=== PATIENT | female | born 1985 | race Caucasian/White ===

== ENCOUNTER 2017-04-02 16:33 | Emergency (ER) | payer OTHER, SELFPAY ==
[2017-04-02] MEDS ORDERED: Sodium Chloride 0.9% 1000 ML 1,000 ML IV STA (17:23)
[2017-04-02] MEDS ORDERED: TYLENOL 325 MG PO STA (17:23)
[2017-04-02] MEDS ORDERED: MAXIPIME 1 GM** 1 G in Sodium Chloride 0.9% 100 ML IVPB 100 ML IV STA (17:23)
[2017-04-02] MEDS ORDERED: Lactated Ringers 1,000 ML IV SCH (17:30)
--- NOTE | 2017-04-02 17:42 | ERPHSYRPT ---
- History of Present Illness Time Seen by Provider: 04/02/17 17:20 Source: patient Exam Limitations: clinical condition Patient Subjective Stated Complaint: Pt states "I think I have the flu. I have body aches, coughing, chills." Triage Nursing Assessment: Pt alert and oriented X 3, skin pwd. Pt ambulates without difficutly, able to speak in clear full sentences. Physician History: PATIENT COMPLAINS OF FLU LIKE SYMPTOMS, FEVER, CHILLS, GENERALIZED ACHES, AND PRODUCTIVE COUGH SINCE LASTS NIGHT. DENIES DIFFICULTY BREATHING, NAUSEA, EMESIS OR DIARRHEA. Timing/Duration: yesterday Cough Quality/Degree: productive cough Possible Cause: occasional episodes Modifying Factors: Improves With: coughing Associated Symptoms: fever, chills, sore throat Allergies/Adverse Reactions: No Known Drug Allergies Allergy (Unverified 09/02/14 18:59) Home Medications: Buspirone HCl [Buspirone HCl] 10 mg PO DAILY 04/02/17 [History] Fluoxetine HCl [Fluoxetine HCl] 20 mg PO DAILY 04/02/17 [History] Trazodone HCl [Desyrel] 50 mg PO DAILY 04/02/17 [History] Hx Tetanus, Diphtheria Vaccination/Date Given: No Hx Influenza Vaccination/Date Given: Yes Hx Pneumococcal Vaccination/Date Given: No Immunizations Up to Date: Yes - Review of Systems Constitutional: Fever, Chills Eyes: No Symptoms Ears, Nose, & Throat: Throat Pain Respiratory: Cough Cardiac: No Chest Pain, No Edema, No Syncope Abdominal/Gastrointestinal: No Abdominal Pain, No Nausea, No Vomiting, No Diarrhea Genitourinary Symptoms: No Dysuria Musculoskeletal: Myalgias, No Back Pain, No Neck Pain Skin: No Symptoms Neurological: No Symptoms - Past Medical History Pertinent Past Medical History: Yes Neurological History: No Pertinent History ENT History: Other Cardiac History: No Pertinent History Respiratory History: No Pertinent History Endocrine Medical History: No Pertinent History Musculoskeletal History: No Pertinent History GI Medical History: Gallbladder Disease, Hepatitis History: No Pertinent History Psycho-Social History: No Pertinent History Female Reproductive Disorders: No Pertinent History - Past Surgical History Past Surgical History: Yes Neuro Surgical History: No Pertinent History Cardiac: No Pertinent History Respiratory: No Pertinent History Gastrointestinal: Cholecystectomy Genitourinary: No Pertinent History Musculoskeletal: No Pertinent History Female Surgical History: No Pertinent History Other Surgical History: 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 - Social History Smoking Status: Current every day smoker How long have you smoked: 15 years Exposure to second hand smoke: Yes Drug Use: none Patient Lives Alone: No - Female History Hx Last Menstrual Period: 03/16/2017 Hx Now: No - Nursing Vital Signs Nursing Vital Signs: Initial Vital Signs Temperature 102.5 F 04/02/17 16:41 Pulse Rate 104 H 04/02/17 16:41 Respiratory Rate 20 04/02/17 16:41 Blood Pressure 147/88 04/02/17 16:41 O2 Sat by Pulse Oximetry 98 04/02/17 16:41 Pain Scale Pain Intensity 4 - Physical Exam General Appearance: no apparent distress, alert Eye Exam: PERRL/EOMI, eyes nml inspection Ears, Nose, Throat Exam: normal ENT inspection, TMs normal, pharynx normal, moist mucous membranes Neck Exam: normal inspection, non-tender, supple, full range of motion Respiratory Exam: diminished breath sounds, No respiratory distress Cardiovascular Exam: regular rate/rhythm (NO WHEEZES OR RHONCHI), normal heart sounds Gastrointestinal/Abdomen Exam: soft, No tenderness Back Exam: normal inspection, No CVA tenderness, No vertebral tenderness Extremity Exam: normal inspection, normal range of motion Neurologic Exam: alert, oriented x 3, cooperative, normal mood/affect, sensation nml, No motor deficits Skin Exam: normal color, warm, dry, No rash Lymphatic Exam: No adenopathy SpO2: 98 Oxygen Delivery: Room Air - Radiology Exams Chest X-ray Interpretation: Interpreted by me (RIGHT INFRAHILAR INFILTRATE) Ordered Tests: Active Orders 24 hr Category Date Time Status Air Traffic Control Supervisor STAT Care 04/02/17 17:24 Active EKG-ER Only STAT Care 04/02/17 17:23 Active IV Insertion STAT Care 04/02/17 17:23 Active Pulse Oximetry (ED) STAT Care 04/02/17 17:23 Active CHEST 1 VIEW (PORTABLE) Stat Exams 04/02/17 18:27 Taken BLOOD CULTURE Stat Lab 04/02/17 17:58 Received CBC W DIFF Stat Lab 04/02/17 17:58 Completed CMP Stat Lab 04/02/17 17:58 Completed CULTURE, THROAT Stat Lab 04/02/17 17:40 Received CULTURE,SPUTUM Stat Lab 04/02/17 17:24 Uncollected CULTURE,URINE Stat Lab 04/02/17 18:00 Received HCG,QUALITATIVE URINE Stat Lab 04/02/17 18:00 Completed Lactic Acid Stat Lab 04/02/17 18:05 Completed Manual Differential NC Stat Lab 04/02/17 17:58 Completed STREP SCREEN-BETA A Stat Lab 04/02/17 17:40 Completed UA W/ MICROSCOPIC Stat Lab 04/02/17 18:00 Completed Respiratory Nebulizer STAT RT 04/02/17 17:59 Completed Medication Summary Generic Name Dose Route Start Last Admin Trade Name Freq PRN Reason Stop Dose Admin Lactated Ringer's 1,000 mls @ 999 mls/hr 04/02/17 17:30 04/02/17 17:55 Lactated Ringers IV 04/02/17 20:30 999 mls/hr .Q1H1M CAREY Administration Discontinued Medications Generic Name Dose Route Start Last Admin Trade Name Freq PRN Reason Stop Dose Admin Acetaminophen 650 mg 04/02/17 17:23 04/02/17 17:55 Tylenol 325 Mg PO 04/02/17 17:24 650 mg STAT STA Administration Acetaminophen Confirm 04/02/17 17:51 Tylenol 325 Mg Administered 04/02/17 17:52 Dose 650 mg .ROUTE .STK-MED ONE Albuterol/Ipratropium Confirm 04/02/17 17:54 Duoneb 0.5-3 Mg/3 Ml Neb Administered 04/02/17 17:55 Dose 3 ml IH .STK-MED ONE Albuterol/Ipratropium 3 ml 04/02/17 17:59 04/02/17 17:58 Duoneb 0.5-3 Mg/3 Ml Neb IH 04/02/17 18:00 3 ml STAT ONE Administration Albuterol/Ipratropium Confirm 04/02/17 18:06 Duoneb 0.5-3 Mg/3 Ml Neb Administered 04/02/17 18:07 Dose 3 ml IH .STK-MED ONE Cefepime HCl 1 g/ Sodium 100 mls @ 200 mls/hr 04/02/17 17:23 04/02/17 18:28 Chloride IV 04/02/17 17:52 200 mls/hr STAT STA Administration Sodium Chloride 1,000 mls @ 999 mls/hr 04/02/17 17:23 04/02/17 17:55 Sodium Chloride 0.9% 1000 Ml IV 04/02/17 18:23 999 mls/hr .Q1H1M STA Administration Sodium Chloride Confirm 04/02/17 17:51 Sodium Chloride 0.9% 1000 Ml Administered 04/02/17 17:52 Dose 1,000 mls @ ud .ROUTE .STK-MED ONE Ondansetron HCl 4 mg 04/02/17 20:20 04/02/17 20:29 Zofran 4 Mg/2 Ml Vial IV 04/02/17 20:21 4 mg STAT ONE Administration Ondansetron HCl Confirm 04/02/17 20:21 Zofran 4 Mg/2 Ml Vial Administered 04/02/17 20:22 Dose 4 mg .ROUTE .STK-Exepron ONE Oseltamivir Phosphate 75 mg 04/02/17 21:08 04/02/17 21:16 Tamiflu 75mg Capsule PO 04/02/17 21:09 75 mg STAT ONE Administration Oseltamivir Phosphate Confirm 04/02/17 21:13 Tamiflu 75mg Capsule Administered 04/02/17 21:14 Dose 75 mg PO .K-Exepron ONE Lab/Rad Data: Laboratory Result Diagrams 04/02/17 17:58 04/02/17 17:58 Laboratory Results 04/02/17 04/02/17 04/02/17 Range/Units 19:55 18:05 18:00 WBC (4.0-10.5) K/mm3 RBC (4.1-5.4) M/mm3 Hgb (12.0-16.0) gm/dl Hct (35-47) % MCV (78-100) fl MCH (26-32) pg MCHC (32-36) g/dl RDW (11.5-14.0) % Plt Count (150-450) K/mm3 MPV (6-9.5) fl Segmented Neutrophils (36.0-66.0) % Band Neutrophils (0.0-2.0) % Lymphocytes (Manual) (24-44) % Monocytes (Manual) (0.0-12.0) % Differential Comment Platelet Estimate (NORMAL) Sodium (136-145) mEq/L Potassium (3.5-5.1) mEq/L Chloride (98-107) mEq/L Carbon Dioxide (21-32) mEq/L Anion Gap (5-15) MEQ/L BUN (9-20) mg/dL Creatinine (0.55-1.30) mg/dl Estimated GFR ML/MIN Glucose (70-110) MG/DL Lactic Acid 0.7 (0.4-2.0) Calcium (8.5-10.1) mg/dL Total Bilirubin (0.2-1.0) mg/dL AST (15-37) U/L ALT (12-78) U/L Alkaline Phosphatase (46-116) U/L Serum Total Protein (6.4-8.2) gm/dL Albumin (3.4-5.0) g/dL Ur Collection Type Urine Color (YELLOW) Urine Appearance (CLEAR) Urine pH (5-6) Ur Specific [place] (1.005-1.025) Urine Protein (Negative) Urine Ketones (NEGATIVE) Urine Blood (0-5) Parker/ul Urine Nitrite (NEGATIVE) Urine Bilirubin (NEGATIVE) Urine Urobilinogen (0-1) mg/dL Ur Leukocyte Esterase (NEGATIVE) Urine Microscopic RBC (0-2) /HPF Urine Microscopic WBC (0-5) /HPF Ur Epithelial Cells (FEW) /HPF Urine Bacteria (NEGATIVE) /HPF Urine Glucose (NEGATIVE) mg/dL Urine HCG, Qual NEGATIVE (Negative) Influenza Type A Ag POSITIVE (NEGATIVE) Influenza Type B Ag NEGATIVE (NEGATIVE) RSV (PCR) NEGATIVE (Negative) Streptococcus Screen (Negative) Specimen Received 04/02/17 04/02/17 04/02/17 Range/Units 18:00 17:58 17:58 WBC 7.3 (4.0-10.5) K/mm3 RBC 4.16 (4.1-5.4) M/mm3 Hgb 12.1 (12.0-16.0) gm/dl Hct 36.9 (35-47) % MCV 88.7 (78-100) fl MCH 29.1 (26-32) pg MCHC 32.8 (32-36) g/dl RDW 14.5 H (11.5-14.0) % Plt Count 272 (150-450) K/mm3 MPV 10.6 H (6-9.5) fl Segmented Neutrophils 85 H (36.0-66.0) % Band Neutrophils 4 H (0.0-2.0) % Lymphocytes (Manual) 4 L (24-44) % Monocytes (Manual) 7 (0.0-12.0) % Differential Comment NORMAL Platelet Estimate NORMAL (NORMAL) Sodium 137 (136-145) mEq/L Potassium 3.6 (3.5-5.1) mEq/L Chloride 101 (98-107) mEq/L Carbon Dioxide 28.8 (21-32) mEq/L Anion Gap 10.8 (5-15) MEQ/L BUN 10 (9-20) mg/dL Creatinine 0.91 (0.55-1.30) mg/dl Estimated GFR > 60 ML/MIN Glucose 101 (70-110) MG/DL Lactic Acid (0.4-2.0) Calcium 8.9 (8.5-10.1) mg/dL Total Bilirubin < 0.10 L (0.2-1.0) mg/dL AST 18 (15-37) U/L ALT 22 (12-78) U/L Alkaline Phosphatase 63 (46-116) U/L Serum Total Protein 7.6 (6.4-8.2) gm/dL Albumin 3.8 (3.4-5.0) g/dL Ur Collection Type CLEAN CATCH Urine Color YELLOW (YELLOW) Urine Appearance HAZY (CLEAR) Urine pH 6.0 (5-6) Ur Specific [place] 1.020 (1.005-1.025) Urine Protein NEGATIVE (Negative) Urine Ketones NEGATIVE (NEGATIVE) Urine Blood 250 (0-5) Parker/ul Urine Nitrite NEGATIVE (NEGATIVE) Urine Bilirubin NEGATIVE (NEGATIVE) Urine Urobilinogen NORMAL (0-1) mg/dL Ur Leukocyte Esterase TRACE (NEGATIVE) Urine Microscopic RBC 5-10 (0-2) /HPF Urine Microscopic WBC 0-2 (0-5) /HPF Ur Epithelial Cells MANY (FEW) /HPF Urine Bacteria FEW (NEGATIVE) /HPF Urine Glucose NEGATIVE (NEGATIVE) mg/dL Urine HCG, Qual (Negative) Influenza Type A Ag (NEGATIVE) Influenza Type B Ag (NEGATIVE) RSV (PCR) (Negative) Streptococcus Screen (Negative) Specimen Received 04/02/2017 1800 04/02/17 Range/Units 17:40 WBC (4.0-10.5) K/mm3 RBC (4.1-5.4) M/mm3 Hgb (12.0-16.0) gm/dl Hct (35-47) % MCV (78-100) fl MCH (26-32) pg MCHC (32-36) g/dl RDW (11.5-14.0) % Plt Count (150-450) K/mm3 MPV (6-9.5) fl Segmented Neutrophils (36.0-66.0) % Band Neutrophils (0.0-2.0) % Lymphocytes (Manual) (24-44) % Monocytes (Manual) (0.0-12.0) % Differential Comment Platelet Estimate (NORMAL) Sodium (136-145) mEq/L Potassium (3.5-5.1) mEq/L Chloride (98-107) mEq/L Carbon Dioxide (21-32) mEq/L Anion Gap (5-15) MEQ/L BUN (9-20) mg/dL Creatinine (0.55-1.30) mg/dl Estimated GFR ML/MIN Glucose (70-110) MG/DL Lactic Acid (0.4-2.0) Calcium (8.5-10.1) mg/dL Total Bilirubin (0.2-1.0) mg/dL AST (15-37) U/L ALT (12-78) U/L Alkaline Phosphatase (46-116) U/L Serum Total Protein (6.4-8.2) gm/dL Albumin (3.4-5.0) g/dL Ur Collection Type Urine Color (YELLOW) Urine Appearance (CLEAR) Urine pH (5-6) Ur Specific [place] (1.005-1.025) Urine Protein (Negative) Urine Ketones (NEGATIVE) Urine Blood (0-5) Parker/ul Urine Nitrite (NEGATIVE) Urine Bilirubin (NEGATIVE) Urine Urobilinogen (0-1) mg/dL Ur Leukocyte Esterase (NEGATIVE) Urine Microscopic RBC (0-2) /HPF Urine Microscopic WBC (0-5) /HPF Ur Epithelial Cells (FEW) /HPF Urine Bacteria (NEGATIVE) /HPF Urine Glucose (NEGATIVE) mg/dL Urine HCG, Qual (Negative) Influenza Type A Ag (NEGATIVE) Influenza Type B Ag (NEGATIVE) RSV (PCR) (Negative) Streptococcus Screen NEGATIVE (Negative) Specimen Received - Progress Progress: improved Progress Note: 04/02/17 17:31 PATIENT PLACED ONTO SEPSIS PROTOCOL AT 1730 FLUID BOLUS 86KG/30ML, AFTER 2 SETS OF BLOOD CULTURES MAXIPINE 1GM IVPB, FOLLOWED BY DUO NEB AEROSOL TX 01/22/18 21:19, ADMINISTERED TAMIFLU 75 MG ORALLY Blood Culture(s) Obtained: Yes Antibiotics given: Yes Counseled pt/family regarding: diagnosis, need for follow-up, rad results, smoking cessation - Departure Time of Disposition: 21:30 Departure Disposition: Home Clinical Impression: INFLUENZA A, ACUTE BRONCHITIS Condition: Stable Critical Care Time: No Referrals: REBEKAH HUNT [Primary Care Provider] - Additional Instructions: TAKE COUGH ROBITUSSIN AC WITH CODEINE 5ML EVERY 4 HOURS NEEDED. ANTIBIOTIC OMNICEF 300MG TWICE DAILY FOR 10 DAYS. TAMIFLU 75MG TWICE FOR 5 DAYS. ALTERNATE TYLENOL EVERY OTHER 4 HOURS WITH MOTRIN NEEDED FOR FEVER OR CHILLS. Prescriptions: Guaifenesin/Codeine 5 ml [Robitussin AC Syrup Unit Dose Cup] 0 ml PO Q4H PRN PRN #120 udcup PRN Reason: Cough Cefdinir [Omnicef 300 mg] 300 mg PO BID #20 capsule Oseltamivir 75 mg [Tamiflu 75MG Capsule] 75 mg PO BID #10 cap
[2017-04-02] MEDS ORDERED: TYLENOL 325 MG ONE (17:51)
[2017-04-02] MEDS ORDERED: Sodium Chloride 0.9% 1000 ML 1,000 ML ONE (17:51)
[2017-04-02] MEDS ORDERED: Lactated Ringers 1,000 ML IV ONE (17:51)
[2017-04-02] MEDS ORDERED: DUONEB 0.5-3 MG/3 ml Neb IH ONE ×3 (17:54→18:06)
[2017-04-02 18:14] LABS: Granulocyte Absolute (ANC) 6.38 (1.4-6.9); Hematocrit 36.9 % (35-47); Hemoglobin 12.1 gm/dl (12.0-16.0); Mean Cell Volume 88.7 fl (78-100); Mean Corpuscular Hemoglobin 29.1 pg (26-32); Mean Corpuscular Hgb Concent. 32.8 g/dl (32-36); Mean Platelet Volume 10.6 fl (6-9.5); Platelet Count 272 K/mm3 (150-450); Red Blood Count 4.16 M/mm3 (4.1-5.4); Red Cell Distribution Width 14.5 % (11.5-14.0); White Blood Count 7.3 K/mm3 (4.0-10.5)
[2017-04-02 18:19] LABS: Appearance HAZY (CLEAR); Bacteria FEW /HPF (NEGATIVE); Bilirubin NEGATIVE (NEGATIVE); Blood 250 Ery/ul (0-5); Epithelial Cells MANY /HPF (FEW); Glucose NEGATIVE (NEGATIVE); Ketones NEGATIVE (NEGATIVE); Leukocyte Esterase TRACE (NEGATIVE); Nitrite NEGATIVE (NEGATIVE); Protein,Urine Dip NEGATIVE (Negative); Urobilinogen NORMAL mg/dL (0-1); WBC 0-2 /HPF (0-5)
[2017-04-02 18:24] LABS: ALBUMIN 3.8 g/dL (3.4-5.0); ALKALINE PHOSPHATASE 63 U/L (46-116); ANION GAP 10.8 MEQ/L (5-15); BLOOD UREA NITROGEN 10 mg/dL (9-20); CHLORIDE 101 mEq/L (98-107); Calcium 8.9 mg/dL (8.5-10.1); Carbon Dioxide 28.8 mEq/L (21-32); Creatinine 1 0.91 mg/dl (0.55-1.30); EST GLOMERULAR FILTRATION RATE > 60 ML/MIN; Glucose 101 MG/DL (70-110); Potassium 3.6 mEq/L (3.5-5.1); SGOT/AST 18 U/L (15-37); SGPT/ALT 22 U/L (12-78); SODIUM 137 mEq/L (136-145); Total Protein 7.6 gm/dL (6.4-8.2)
[2017-04-02 18:26] LABS: BILIRUBIN,TOTAL < 0.10 mg/dL (0.2-1.0)
[2017-04-02 18:56] LABS: BAND 4 % (0.0-2.0); Lymphocytes 4 % (24-44); Monocyte 7 % (0.0-12.0); Neutrophils 85 % (36.0-66.0); Total Cells Counted 100
[2017-04-02 18:57] LABS: Platelet Estimate NORMAL (NORMAL)
[2017-04-02] MEDS ORDERED: Zofran 4 MG/2 ML VIAL IV ONE (20:20)
[2017-04-02] MEDS ORDERED: Zofran 4 MG/2 ML VIAL ONE (20:21)
[2017-04-02 21:01] LABS: INFLUENZA A POSITIVE (NEGATIVE); INFLUENZA B NEGATIVE (NEGATIVE); RESPIRATORY SYNCTIAL VIRUS NEGATIVE (Negative)
[2017-04-02] MEDS ORDERED: Tamiflu 75MG Capsule PO ONE ×2 (21:08→21:13)
[2017-04-02 21:24] VITALS: O2SAT 98
[2017-04-02 21:50] VITALS: BP 127/69; PULSE 97
--- NOTE | 2017-04-03 08:39 | XRAY ---
Indication: Cough. Comparison: February 14, 2016. Portable chest demonstrates new subtle right base infiltrate/atelectasis. Remaining heart, lungs, and bony thorax normal.
== END 2017-04-02 21:48 | disposition home or self-care (01) ==
LOC: ED 16:33
DX: J09.X2 Influenza due to identified novel influenza A virus with other respiratory manifestations (principal); J20.9 Acute bronchitis, unspecified
CPT/HCPCS: 36000; 36415; 71045; 80053; 81000; 83605; 84703; 85025; 87040; 87070; 87086; 87430; 87631; 93005; 93041; 94640; 96374; 99284; J0692; J2405; A9270-GY

== ENCOUNTER 2017-10-02 18:39 | Emergency (ER) | payer OTHER ==
[2017-10-02 18:53] VITALS: PULSE 90; O2SAT 96
[2017-10-02] MEDS ORDERED: Phenergan 25 MG INJ IV ONE (19:47)
[2017-10-02] MEDS ORDERED: Sodium Chloride 0.9% 1000 ML 1,000 ML IV STA (19:47)
[2017-10-02] MEDS ORDERED: Phenergan 25 MG INJ ONE ×2 (19:57→20:10)
[2017-10-02] MEDS ORDERED: Sodium Chloride 0.9% 1000 ML 1,000 ML ONE ×2 (19:57→20:10)
[2017-10-02 20:37] LABS: ALBUMIN 4.3 g/dL (3.5-5.0); ALKALINE PHOSPHATASE 110 U/L (38-126); AMYLASE 45 U/L (30-110); ANION GAP 14.5 MEQ/L (5-15); BLOOD UREA NITROGEN 4 mg/dL (7-17); CHLORIDE 99 mmol/L (98-107); Calcium 8.9 mg/dL (8.4-10.2); Carbon Dioxide 27 mmol/L (22-30); Creatinine 1 0.78 mg/dL (0.52-1.04); Glucose 113 mg/dL (74-106); LIPASE 36 U/L (23-300); Potassium 3.1 mmol/L (3.5-5.1); SGOT/AST 112 U/L (14-36); SGPT/ALT 176 U/L (0-35); SODIUM 137 mmol/L (137-145); Total Protein 7.6 g/dL (6.3-8.2)
[2017-10-02 20:38] LABS: BASOPHIL % 0.1 % (0.0-0.4); Basophil (Absolute #) 0.01 (0-0.4); Eosinophil % 0.9 % (0.00-5.0); Eosinophil (Absolute #) 0.07 (0-0.5); Granulocyte Absolute (ANC) 5.92 (1.4-6.9); Granulocytes % 79.2 % (36.0-66.0); Hematocrit 38.6 % (35-47); Hemoglobin 12.8 gm/dl (12.0-16.0); Lymphocyte (Absolute #) 0.88 (1.0-4.6); Lymphocytes % 11.8 % (24.0-44.0); Mean Cell Volume 87.5 fl (78-100); Mean Corpuscular Hgb Concent. 33.2 g/dl (32-36); Mean Platelet Volume 9.6 fl (6-9.5); Platelet Count 283 K/mm3 (150-450); Red Blood Count 4.41 M/mm3 (4.1-5.4); Red Cell Distribution Width 14.4 % (11.5-14.0); White Blood Count 7.5 K/mm3 (4.0-10.5)
[2017-10-02 20:50] LABS: Appearance SLIGHTLY CLOUDY (CLEAR); Leukocyte Esterase 1+ (NEGATIVE); Nitrite NEGATIVE (NEGATIVE); Specific Gravity 1.015 (1.005-1.025)
[2017-10-02 20:51] LABS: Bilirubin NEGATIVE (NEGATIVE); Blood 250 Ery/ul (0-5); Glucose NEGATIVE (NEGATIVE); Ketones NEGATIVE (NEGATIVE); Protein,Urine Dip TRACE (Negative); Urobilinogen NORMAL mg/dL (0-1)
[2017-10-02 20:52] LABS: Bacteria MODERATE /HPF (NEGATIVE); Epithelial Cells MANY /HPF (FEW)
[2017-10-02 20:53] LABS: RBC 25-50 /HPF (0-2)
[2017-10-02] MEDS ORDERED: Cipro 500 MG PO ONE (21:30)
[2017-10-02] MEDS ORDERED: Flagyl 500 MG PO ONE (21:30)
--- NOTE | 2017-10-02 21:52 | ERPHSYRPT ---
- History of Present Illness Time Seen by Provider: 10/02/17 19:20 Historian: patient Exam Limitations: no limitations Patient Subjective Stated Complaint: Pt states "I have had diarrhea and abdominal cramping for the past three days. I have not been able to eat or drink for three days either." Triage Nursing Assessment: Pt alert and oriented X 3, skin pwd. PT ambulates with an upright steady gait, able to speak in clear full sentences, no apparent respiratory distress. Physician History: 32 Y/O WHITE FEMALE WITH H/O BTL PRESENTS WITH N/V/D INTERMITTENTLY FOR 3 TO 4 DAYS. NO CAMPING, NO TRAVEL OUTSIDE US, NO DRINKING OF WELL WATER. NO INDIVIDUALS WITH SIMILAR SX. PT HAS HAD A CHOLECYSTECTOMY IN THE PAST Timing/Duration: day(s) (3 TO 4 DAY) Activities at Onset: none Quality: cramping Abdominal Pain Onset Location: generalized abdomen Pain Radiation: no radiation Severity of Pain-Max: mild Severity of Pain-Current: mild Allergies/Adverse Reactions: kiwi Allergy (Severe, Verified 10/02/17 18:54) mouth tingling and swelling Home Medications: Fluoxetine HCl 20 mg PO DAILY 04/02/17 [History] Trazodone HCl [Desyrel] 50 mg PO DAILY 04/02/17 [History] Hx Tetanus, Diphtheria Vaccination/Date Given: Yes Hx Influenza Vaccination/Date Given: Yes Hx Pneumococcal Vaccination/Date Given: No Immunizations Up to Date: Yes - Review of Systems Constitutional: No Symptoms, Night Sweats, No Fever, No Chills, No Weight Loss Eyes: No Symptoms Ears, Nose, & Throat: No Symptoms Respiratory: No Symptoms, No Cough, No Dyspnea, No Stridor, No Wheezing Cardiac: No Symptoms, No Chest Pain Abdominal/Gastrointestinal: Abdominal Pain, Nausea, Vomiting, Diarrhea Genitourinary Symptoms: No Symptoms, No Dysuria, No Frequency, No Hematuria, No Vaginal Bleeding, No Vaginal Discharge Musculoskeletal: No Symptoms, No Arthralgias, No Back Pain Skin: No Symptoms Neurological: No Symptoms Psychological: No Symptoms Endocrine: No Symptoms Hematologic/Lymphatic: No Symptoms Immunological/Allergic: No Symptoms All Other Systems: Reviewed and Negative - Past Medical History Pertinent Past Medical History: Yes Neurological History: No Pertinent History ENT History: Other Cardiac History: No Pertinent History Respiratory History: No Pertinent History Endocrine Medical History: No Pertinent History Musculoskeletal History: No Pertinent History GI Medical History: Gallbladder Disease, Hepatitis History: No Pertinent History Psycho-Social History: No Pertinent History Female Reproductive Disorders: No Pertinent History - Past Surgical History Past Surgical History: Yes Neuro Surgical History: No Pertinent History Cardiac: No Pertinent History Respiratory: No Pertinent History Gastrointestinal: Cholecystectomy Genitourinary: No Pertinent History Musculoskeletal: No Pertinent History Female Surgical History: No Pertinent History Other Surgical History: 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 - Social History Smoking Status: Current every day smoker How long have you smoked: 15 years Exposure to second hand smoke: Yes Drug Use: none Patient Lives Alone: No - Female History Hx Last Menstrual Period: 08/27/2017 Hx Now: No - Nursing Vital Signs Nursing Vital Signs: Initial Vital Signs Temperature 99.8 F 10/02/17 18:48 Pulse Rate 90 10/02/17 18:48 Respiratory Rate 18 10/02/17 18:48 Blood Pressure 138/79 10/02/17 18:48 O2 Sat by Pulse Oximetry 96 10/02/17 18:48 Pain Scale Pain Intensity 5 - Physical Exam General Appearance: no apparent distress, alert, anxiety Eye Exam: PERRL/EOMI, eyes nml inspection Ears, Nose, Throat Exam: normal ENT inspection Neck Exam: normal inspection, non-tender, supple, full range of motion Respiratory Exam: normal breath sounds, lungs clear, airway intact, No chest tenderness, No respiratory distress Gastrointestinal/Abdomen Exam: soft, tenderness (MILD DIFFUSE), No guarding, No rebound Pelvic Exam: not done Rectal Exam: deferred Back Exam: normal inspection, normal range of motion Extremity Exam: normal inspection, normal range of motion, pelvis stable Neurologic Exam: alert, oriented x 3, cooperative, dairy technician II-XII nml as tested, normal mood/affect Skin Exam: normal color, warm, dry Lymphatic Exam: No adenopathy SpO2 Interpretation: normal SpO2: 96 Oxygen Delivery: Room Air - Course Nursing assessment & vital signs reviewed: Yes Ordered Tests: Active Orders 24 hr Category Date Time Status IV Insertion STAT Care 10/02/17 19:47 Active AMYLASE Stat Lab 10/02/17 20:10 Completed CBC W DIFF Stat Lab 10/02/17 20:10 Completed CMP Stat Lab 10/02/17 20:10 Completed CULTURE,URINE Stat Lab 10/02/17 19:50 Received HCG,QUALITATIVE URINE Stat Lab 10/02/17 19:50 Completed LIPASE Stat Lab 10/02/17 20:10 Completed UA W/ MICROSCOPIC Stat Lab 10/02/17 19:50 Completed Medication Summary Discontinued Medications Generic Name Dose Route Start Last Admin Trade Name Kit PRN Reason Stop Dose Admin Ciprofloxacin 500 mg 10/02/17 21:30 Cipro 500 Mg PO 10/02/17 21:31 STAT ONE Sodium Chloride 1,000 mls @ 999 mls/hr 10/02/17 19:47 10/02/17 20:12 Sodium Chloride 0.9% 1000 Ml IV 10/02/17 20:47 999 mls/hr .Q1H1M STA Administration Sodium Chloride Confirm 10/02/17 19:57 Sodium Chloride 0.9% 1000 Ml Administered 10/02/17 19:58 Dose 1,000 mls @ ud .ROUTE .STK-MED ONE Sodium Chloride Confirm 10/02/17 20:10 Sodium Chloride 0.9% 1000 Ml Administered 10/02/17 20:11 Dose 1,000 mls @ ud .ROUTE .STK-MED ONE Metronidazole 500 mg 10/02/17 21:30 Flagyl 500 Mg PO 10/02/17 21:31 STAT ONE Promethazine HCl 12.5 mg 10/02/17 19:47 10/02/17 20:12 Phenergan 25 Mg Inj IV 10/02/17 19:48 12.5 mg STAT ONE Administration Promethazine HCl Confirm 10/02/17 19:57 Phenergan 25 Mg Inj Administered 10/02/17 19:58 Dose 25 mg .ROUTE .STK-MED ONE Promethazine HCl Confirm 10/02/17 20:10 Phenergan 25 Mg Inj Administered 10/02/17 20:11 Dose 25 mg .ROUTE .STK-MED ONE Lab/Rad Data: Laboratory Result Diagrams 10/02/17 20:10 10/02/17 20:10 Laboratory Results 10/02/17 10/02/17 10/02/17 Range/Units 20:10 20:10 19:50 WBC 7.5 (4.0-10.5) K/mm3 RBC 4.41 (4.1-5.4) M/mm3 Hgb 12.8 (12.0-16.0) gm/dl Hct 38.6 (35-47) % MCV 87.5 (78-100) fl MCH 29.0 (26-32) pg MCHC 33.2 (32-36) g/dl RDW 14.4 H (11.5-14.0) % Plt Count 283 (150-450) K/mm3 MPV 9.6 H (6-9.5) fl Gran % 79.2 H (36.0-66.0) % Eos # (Auto) 0.07 (0-0.5) Absolute Lymphs (auto) 0.88 L (1.0-4.6) Absolute Monos (auto) 0.60 (0.0-1.3) Lymphocytes % 11.8 L (24.0-44.0) % Monocytes % 8.0 (0.0-12.0) % Eosinophils % 0.9 (0.00-5.0) % Basophils % 0.1 (0.0-0.4) % Absolute Granulocytes 5.92 (1.4-6.9) Basophils # 0.01 (0-0.4) Sodium 137 (137-145) mmol/L Potassium 3.1 L (3.5-5.1) mmol/L Chloride 99 (98-107) mmol/L Carbon Dioxide 27 (22-30) mmol/L Anion Gap 14.5 (5-15) MEQ/L BUN 4 L (7-17) mg/dL Creatinine 0.78 (0.52-1.04) mg/dL Estimated GFR > 60.0 ML/MIN Glucose 113 H (74-106) mg/dL Calcium 8.9 (8.4-10.2) mg/dL Total Bilirubin 0.20 (0.2-1.3) mg/dL AST 112 H (14-36) U/L ALT 176 H (0-35) U/L Alkaline Phosphatase 110 (38-126) U/L Serum Total Protein 7.6 (6.3-8.2) g/dL Albumin 4.3 (3.5-5.0) g/dL Amylase 45 (30-110) U/L Lipase 36 (23-300) U/L Ur Collection Type Urine Color (YELLOW) Urine Appearance (CLEAR) Urine pH (5-6) Ur Specific [place] (1.005-1.025) Urine Protein (Negative) Urine Ketones (NEGATIVE) Urine Blood (0-5) Parker/ul Urine Nitrite (NEGATIVE) Urine Bilirubin (NEGATIVE) Urine Urobilinogen (0-1) mg/dL Ur Leukocyte Esterase (NEGATIVE) Urine Microscopic RBC (0-2) /HPF Urine Microscopic WBC (0-5) /HPF Ur Epithelial Cells (FEW) /HPF Urine Bacteria (NEGATIVE) /HPF Urine Culture Reflexed (NO) Urine Glucose (NEGATIVE) mg/dL Urine HCG, Qual NEGATIVE (Negative) Specimen Received 10/02/17 Range/Units 19:50 WBC (4.0-10.5) K/mm3 RBC (4.1-5.4) M/mm3 Hgb (12.0-16.0) gm/dl Hct (35-47) % MCV (78-100) fl MCH (26-32) pg MCHC (32-36) g/dl RDW (11.5-14.0) % Plt Count (150-450) K/mm3 MPV (6-9.5) fl Gran % (36.0-66.0) % Eos # (Auto) (0-0.5) Absolute Lymphs (auto) (1.0-4.6) Absolute Monos (auto) (0.0-1.3) Lymphocytes % (24.0-44.0) % Monocytes % (0.0-12.0) % Eosinophils % (0.00-5.0) % Basophils % (0.0-0.4) % Absolute Granulocytes (1.4-6.9) Basophils # (0-0.4) Sodium (137-145) mmol/L Potassium (3.5-5.1) mmol/L Chloride (98-107) mmol/L Carbon Dioxide (22-30) mmol/L Anion Gap (5-15) MEQ/L BUN (7-17) mg/dL Creatinine (0.52-1.04) mg/dL Estimated GFR ML/MIN Glucose (74-106) mg/dL Calcium (8.4-10.2) mg/dL Total Bilirubin (0.2-1.3) mg/dL AST (14-36) U/L ALT (0-35) U/L Alkaline Phosphatase (38-126) U/L Serum Total Protein (6.3-8.2) g/dL Albumin (3.5-5.0) g/dL Amylase (30-110) U/L Lipase (23-300) U/L Ur Collection Type VOID Urine Color YELLOW (YELLOW) Urine Appearance SLIGHTLY CLOUDY (CLEAR) Urine pH 6.0 (5-6) Ur Specific [place] 1.015 (1.005-1.025) Urine Protein TRACE (Negative) Urine Ketones NEGATIVE (NEGATIVE) Urine Blood 250 (0-5) Parker/ul Urine Nitrite NEGATIVE (NEGATIVE) Urine Bilirubin NEGATIVE (NEGATIVE) Urine Urobilinogen NORMAL (0-1) mg/dL Ur Leukocyte Esterase 1+ (NEGATIVE) Urine Microscopic RBC 25-50 (0-2) /HPF Urine Microscopic WBC 5-10 (0-5) /HPF Ur Epithelial Cells MANY (FEW) /HPF Urine Bacteria MODERATE (NEGATIVE) /HPF Urine Culture Reflexed YES (NO) Urine Glucose NEGATIVE (NEGATIVE) mg/dL Urine HCG, Qual (Negative) Specimen Received 10/02/17 2030 - Progress Progress: improved, re-examined Progress Note: 10/02/17 21:53 PT STATES SHE IS FEELING BETTER. Counseled pt/family regarding: lab results, diagnosis, need for follow-up - Departure Time of Disposition: 21:54 Departure Disposition: Home Clinical Impression: UTI (urinary tract infection), Colitis Condition: Stable Critical Care Time: No Referrals: REBEKAH HUNT [Primary Care Provider] - Additional Instructions: DRINK PLENTY OF FLUIDS. FOLLOW UP WITH PRIMARY DOCTOR FOR PERSISTENT SYMPTOMS. RETURN TO ER FOR WORSENING SYMPTOMS Prescriptions: Promethazine HCl 25 mg [Phenergan 25 mg] 25 mg PO Q8H PRN PRN #10 tablet PRN Reason: Nausea/Vomiting Ciprofloxacin [Cipro 500 MG] 500 mg PO BID #14 tablet Metronidazole 500 mg [Flagyl 500 MG] 500 mg PO TID #21 tablet
[2017-10-02] MEDS ORDERED: Flagyl 500 MG ONE (22:05)
[2017-10-02] MEDS ORDERED: Cipro 500 MG ONE (22:05)
[2017-10-02 22:36] VITALS: BP 123/69
== END 2017-10-02 22:37 | disposition home or self-care (01) ==
LOC: ED 18:39
DX: N39.0 Urinary tract infection, site not specified (principal); K52.9 Noninfective gastroenteritis and colitis, unspecified
CPT/HCPCS: 36000; 36415; 80053; 81000; 82150; 83690; 84703; 85025; 87086; 96360; 96374; 96375; 99284; J2550; A9270-GY